=== PATIENT | male | born 1990 | race African-American/Black ===

== ENCOUNTER 2017-05-30 09:16 | Emergency (ER) | payer MEDICAID | END 2017-05-30 10:15 | disposition home or self-care (01) | LOC: D.ER 09:16 | DX: J20.9 Acute bronchitis, unspecified (principal); J06.9 Acute upper respiratory infection, unspecified; I10 Essential (primary) hypertension ==

== ENCOUNTER 2019-11-16 08:22 | Emergency (ER) | payer MEDICAID ==
[~2019-11-16] VITALS: Ht 193 cm; Wt 131.8 kg
[2019-11-16 08:29] VITALS: Ht 193 cm; Wt 131.8 kg
[2019-11-16] MEDS ORDERED: ZYLOPRIM100 MG PO (08:30)
[2019-11-16] MEDS ORDERED: LISINOPRIL20 MG PO (08:30)
[2019-11-16] MEDS ORDERED: TOPROL XL50 MG PO (08:30)
[2019-11-16 09:25] VITALS: BP 157/89
== END 2019-11-16 09:28 | disposition home or self-care (01) ==
LOC: D.ER 08:22
DX: M25.562 Pain in left knee (principal)

== ENCOUNTER → 2019-11-16 14:16 | Outpatient (CLI) | payer MEDICAID ==
[2019-11-16 08:29] VITALS: BMI 35.3
[~2019-11-16 14:16] MED LIST: LISINOPRIL20 MG PO; TOPROL XL50 MG PO; ZYLOPRIM100 MG PO
[2019-11-16 14:59] LABS: PROTEIN - BODY FLUID 5.3 G/DL
[2019-11-16 16:41] LABS: MACROPHAGES BF 5 %; NEUT - BF 89 %
== END | disposition home or self-care (01) ==
LOC: D.LABREF 14:16
PROVIDERS: ATTEND Orthopaedic Surgery
DX: M25.562 Pain in left knee (principal)